=== PATIENT | female | born 1950 | race Two or more races ===

== ENCOUNTER 2023-09-09 11:20 | Inpatient (IN) | payer OTHER ==
[~2023-09-09] VITALS: Ht 152.4 cm; Wt 67.6 kg
[~2023-09-09 11:20] MED LIST: CYMBALTA60 MG PO; NEURONTIN800 MG PO; SULINDAC200 MG PO; SYNTHROID112 MCG PO
[2023-09-21] MEDS ORDERED: PERCOCET 5-3251 EACH PO (14:05)
[2023-09-21] MEDS ORDERED: COLACE100 MG PO (14:05)
[2023-09-21] MEDS ORDERED: AMOX-CLAV 875-1 EACH PO (14:05)
[2023-09-21] MEDS ORDERED: MEDROLPACK PO (14:05)
[2023-09-21] MEDS ORDERED: GABAPENTIN100 M2 PO (14:06)
[2023-09-21] MEDS ORDERED: NEURONTIN800 MG PO (14:06)
[2023-09-22 06:58] LABS: HEMATOCRIT 32.6 % (36.0-45.00); HEMOGLOBIN 11.2 g/dL (12.0-15.00); MEAN CELL VOLUME 86.9 fL (80.00-100.00); MEAN CORPUSCULAR HEMOGLOBIN 29.9 pg (27.00-32.0); MEAN CORPUSCULAR HGB CONC 34.4 g/dl (32.0-36.0); PLATELET COUNT 162 K/uL (150-450); RED BLOOD COUNT 3.75 M/uL (4.00-6.00); RED CELL DISTRIBUTION WIDTH 14.5 % (11.5-14.5)
[2023-09-22 07:13] LABS: CALCIUM 7.9 mg/dL (8.5-10.1); CREATININE SERUM 0.56 mg/dL (0.55-1.02); GFR 106.41; POTASSIUM 3.96 mEq/L (3.5-5.1)
== END 2023-09-23 09:06 | disposition home or self-care (01) | DRG 455 ==
LOC: O/R 09-21 06:15 → SURH 09-21 11:18 → EDSTATUS 09-21 11:46 → SURH 09-21 17:30 → PED 09-21 23:53
PROVIDERS: ADMIT Orthopaedic Surgery Orthopaedic Surgery of the Spine; ATTEND Orthopaedic Surgery Orthopaedic Surgery of the Spine
PROC: 0SG3071 Fusion of Lumbosacral Joint with Autologous Tissue Substitute, Posterior Approach, Posterior Column, Open Approach (ICD-10-PCS; 2023-09-21)
PROC: 0ST40ZZ Resection of Lumbosacral Disc, Open Approach (ICD-10-PCS; 2023-09-21)
PROC: 0QB30ZZ Excision of Left Pelvic Bone, Open Approach (ICD-10-PCS; 2023-09-21)
PROC: 07DR0ZZ Extraction of Iliac Bone Marrow, Open Approach (ICD-10-PCS; 2023-09-21)
PROC: 4A1104G Monitoring of Peripheral Nervous Electrical Activity, Intraoperative, Open Approach (ICD-10-PCS; 2023-09-21)
PROC: 0SG30A0 Fusion of Lumbosacral Joint with Interbody Fusion Device, Anterior Approach, Anterior Column, Open Approach (ICD-10-PCS; principal; 2023-09-21 17:30)
DX: M48.07 Spinal stenosis, lumbosacral region (principal); M43.17 Spondylolisthesis, lumbosacral region; M54.17 Radiculopathy, lumbosacral region; M96.1 Postlaminectomy syndrome, not elsewhere classified; E03.9 Hypothyroidism, unspecified